=== PATIENT | male | born 1960 | race Caucasian/White ===

== ENCOUNTER 2020-01-18 14:01 | Emergency (ER) | payer OTHER, SELFPAY ==
--- NOTE | ~2020-01-18 | CT_ITS ---
EXAMINATION: CT heel RT wo con DATE: 01/18/2020 15:17 INDICATION: Right calcaneus fracture TECHNIQUE: Computed tomography (CT) of the right heel was performed without intravenous contrast. The dose-length product (DLP) was 242.19 mGy-cm. Automated exposure control and iterative reconstruction technique were employed. COMPARISON: None FINDINGS: There is a comminuted fracture of the calcaneus which involves the subtalar joint and exten ds to the anteromedial cortex of the calcaneus. Fracture fragments are by as much as 4 mm. No additional acute osseous findings are evident. There is soft tissue swelling of the heel. IMPRESSION: 1. Comminuted fracture of the calcaneus extending to the subtalar joint as well as the anteromedial c ortex of the calcaneus. Reviewed, dictated and finalized at location A. IMPRESSION: 1. Comminuted fracture of the calcaneus extending to the subtalar joint as well as the anteromedial cortex of the calcaneus.
--- NOTE | ~2020-01-18 | XR_ITS ---
EXAMINATION: XR ankle RT min 3V INDICATION: Right foot and ankle pain, initial encounter TECHNIQUE: Four views of the right ankle are obtained. COMPARISON: None available FINDINGS: There is an acute, traumatic, closed, comminuted fracture of the calcaneus. No additional a cute osseous findings are evident. Bone alignment is normal. There is soft tissue swelling of the pos terior foot. IMPRESSION: 1. Comminuted calcaneus fracture. Reviewed, dictated and finalized at location A.
[2020-01-18 14:07] VITALS: BP 132/73; PULSE 73; RESP 18; TEMP 36.3; O2SAT 99
--- NOTE | 2020-01-18 14:22 | ED.GENADULT ---
HPI - General Adult General Chief complaint: Extremity Injury, Lower Stated complaint: right ankle injury Time Seen by Provider: 01/18/20 14:12 Source: patient History of Present Illness HPI narrative: Patient is a 59 y/o male complaining of right ankle and heel pain after he jumped off a trailer 1 hour ago. He describes the pain as sharp and rates it as 9/10. There is no pain radiation. He took Aleve, which did not help. He denies any other injury. He did not fall or hit his head. He also complains of some numbness to right heel. Review of Systems Constitutional: Constitutional: Denies chills, Denies fever(s), Denies headache(s) and Denies weakness Eyes: Eyes: Denies blurry vision ENT: Denies headache(s) and Denies neck pain Cardiovascular: Cardiovascular: Denies chest pain and Denies dyspnea Respiratory: Respiratory: Denies cough and Denies dyspnea Gastrointestinal: Gastrointestinal: Denies abdominal pain, Denies diarrhea, Denies nausea and Denies vomiting Genitourinary: Genitourinary: Denies hematuria and Denies dysuria Musculoskeletal: Musculoskeletal: Reports as per HPI, Denies back pain, Reports arthralgias (right ankle pain) and Denies neck pain Neurologic: Denies headache(s) and Denies weakness Exam Const: General: no acute distress and well developed Orientation/consciousness: oriented to person, oriented to place, oriented to time and patient oriented x3 HENMT: Head: normocephalic Ears: external ears normal General nose exam: Normal external nose present Eyes: General: appearance normal, both eyes and all related structures Conjunctivae: conjunctivae normal Neck: Neck: normal visual inspection and full ROM Chest: Chest palpation & inspection: normal inspection of the chest and no tenderness Resp: Effort & Inspection: normal respiratory effort and able to speak in complete sentences Skin: General skin exam: normal color and turgor normal Extrem: General: normal to inspection, full ROM and no pedal edema Right lower extremity: ankle Details: tenderness; no swelling and foot Details: tenderness Location: of the calcaneus Course Consultations Consultation #1: Discussed with Dr. Serrano, who recommends CT and splint with plaster. Date: 01/18/20 Time: 14:49 Vital Signs Vital signs: Vital Signs Temperature 36.3 C L 01/18/20 14:07 Pulse Rate 73 01/18/20 14:07 Respiratory Rate 18 01/18/20 14:07 Blood Pressure 132/73 01/18/20 14:07 Pulse Oximetry 99 01/18/20 14:07 Temperature 36.3 C L 01/18/20 14:07 Pulse Rate 88 01/18/20 15:22 Respiratory Rate 17 01/18/20 15:22 Blood Pressure 142/88 H 01/18/20 15:22 Pulse Oximetry 98 01/18/20 15:22 Procedures Orthopedic Splinting/Casting Injury #1: Splinting/Casting Date: 01/18/20 Splinting/Casting Time: 15:45 Side: right Lower Extremity Injury Location: foot (right calcaneus) Lower Extremity Immobilizer: posterior splint and stirrup splint Splint: customized in ED (plaster splint) Pre-Procedure Neuro Vascular Exam: normal Post-Procedure Neuro Vascular Exam: normal Other Orthopedic Equipment: crutches Medical Decision Making Vital Signs Vital Signs: Vital Signs Temperature 36.3 C L 01/18/20 14:07 Pulse Rate 73 01/18/20 14:07 Respiratory Rate 18 01/18/20 14:07 Blood Pressure 132/73 01/18/20 14:07 Pulse Oximetry 99 01/18/20 14:07 Temperature 36.3 C L 01/18/20 14:07 Pulse Rate 88 01/18/20 15:22 Respiratory Rate 17 01/18/20 15:22 Blood Pressure 142/88 H 01/18/20 15:22 Pulse Oximetry 98 01/18/20 15:22 Discharge Plan Discharge Clinical Impression: Closed fracture of right calcaneus Qualifiers: Encounter type: initial encounter Calcaneus location: unspecified portion of calcaneus Fracture alignment: displaced Qualified Code(s): S92.001A - Unspecified fracture of right calcaneus, initial encounter for closed fracture Patient Disposition
[2020-01-18] MEDS: HYDROcodone/acetaminophen (*CRX) 5-325 MG TABLET 1 TAB PO (15:20)
[2020-01-18 15:22] VITALS: BP 142/88; PULSE 88; RESP 17; O2SAT 98
== END 2020-01-18 16:13 | disposition home or self-care (01) ==
PROVIDERS: Emergency Provider Emergency Medicine; PCP Internal Medicine
DX: S92.001A Unspecified fracture of right calcaneus, initial encounter for closed fracture (principal); W17.89XA Other fall from one level to another, initial encounter
CPT/HCPCS: 29515; 73610; 73700; 99284; A9270

== ENCOUNTER 2020-01-24 01:28 | Outpatient (CLI) | payer OTHER, SELFPAY ==
[2020-01-24 17:58] LABS: SARS-CoV-2 RNA PCR Negative
== END 2020-01-24 01:29 | disposition home or self-care (01) ==
LOC: ANHCOVIDDT 01:29
PROVIDERS: PCP Internal Medicine; Visit Provider Orthopaedic Surgery
DX: Z01.812 Encounter for preprocedural laboratory examination (principal); Z20.828 Contact with and (suspected) exposure to other viral communicable diseases
CPT/HCPCS: 87635; C9803; U0003

== ENCOUNTER 2020-01-26 02:44 | Day surgery (SDC) | payer OTHER, SELFPAY ==
[2020-01-23 14:26] VITALS: BMI 29.4
[2020-01-26] VITALS (7 sets, daily range): BP systolic 115–138; BP diastolic 64–88; PULSE 82–92; RESP 10–18; TEMP 36.3–36.5; O2SAT 96–98
--- NOTE | ~2020-01-26 | XR_ITS ---
. EXAMINATION: XR surgery orthopedic DATE: 01/26/2020 12:09 INDICATION: ORIF right calcaneal fracture TECHNIQUE: 3 fluoroscopic spot images of the right hindfoot were obtained in varying obliquities duri ng procedure performed by Dr. Diaz. Radiologist was not present for the imaging or procedure. The amount of fluoroscopy time used during this procedure was 0.6 minutes. COMPARISON: CT dated 01/18/2020 FINDINGS: Interval open reduction and internal fixation with a lateral plate and screws extending from the ante rior to the posterior calcaneus. Alignment appears near-anatomic with no significant fracture gap or incongruity appreciated along the articular surface of the posterior facet. Joint spaces appear neel l. Expected small amount of postoperative gas at the subtalar joint and in the posterior recess of th e ankle joint. Small Achilles and plantar calcaneal spurs. IMPRESSION: 1. Near-anatomic alignment post reduction and internal lateral plate and screw fixation of a comminut ed intra-articular fracture of the right calcaneus. See procedure note for further detail. Reviewed, dictated and finalized at location A. IMPRESSION: 1. Near-anatomic alignment post reduction and internal lateral plate and screw fixation of a comminuted intra-articular fracture of the right calcaneus. See p rocedure note for further detail.
--- NOTE | 2020-01-26 07:15 | WPDHPUPDATE1 ---
History and Physical Update Update Date/Time: 01/26/20 07:15 History and Physical has been reviewed, including an updated exam of the patient. There are NO changes in the patient's condition. Covid test negative. Risks, benefits, and alternatives have been discussed and questions answered. Patient agrees to proceed with procedure.
[2020-01-26] MEDS: LACTATED RINGERS 1,000 ML 30 ML IV CONT ×2 (08:16→12:36)
[2020-01-26] MEDS: KETOROLAC 15 MG/ML VIAL (*BKC) IV PUSH (08:16)
[2020-01-26] MEDS: ACETAMINOPHEN 500 MG TABLET 1000 MG PO (08:16)
--- NOTE | 2020-01-26 08:26 | WPDANESEPPF ---
Anes - Initial Pre Proc Eval Procedure: Operation Date: 01/26/20 09:30 Proposed Procedures p Open Reduction Internal Fixation Right Calcaneus - Bandar Diaz MD Date/Time: 01/26/20 08:26 Surgeon: Bandar Diaz MD Pre Op Diagnosis: fx right calcaneous Patient Data Age: 59 Gender: M Height: 5 ft 7 in Weight: 84.1 kg Last Vital Signs Temp 36.5 C 01/26/20 08:22 Pulse 91 01/26/20 08:22 Resp 16 01/26/20 08:22 BP 138/88 01/26/20 08:22 Pulse Ox 98 01/26/20 08:22 Allergies Allergy/AdvReac Type Severity Reaction Status Date / Time Penicillins Allergy Unknown Unknown Verified 01/26/20 07:31 Home Medications Medication Instructions Recorded Confirmed Type oxycodone-acetaminophen 7.5 mg-325 1 tablet PO Q6H PRN #30 tablet 01/19/20 01/26/20 Rx mg tablet ibuprofen 200 mg tablet 200 mg PO Q6H PRN 01/23/20 01/26/20 History Patient hx anesthesia problems: none Family hx anesthesia problems: none PMFSH Past Medical History Medical History (Updated 01/26/20 @ 08:27 by Juanjose Rosado MD) Hyperlipidemia Overweight Seasonal allergies Vision abnormalities Surgical History Surgical History (Updated 01/26/20 @ 08:27 by Juanjose Rosado MD) H/O hernia repair H/O sinus surgery Social History Social History Smoking status: Former smoker Tobacco type: cigarettes Smoking end date: 04/23/00 Additional smoking assessment comments: pt stated he quit 23 years ago Alcohol intake: current Alcohol use details: once a week Living arrangements: with family Gender identity (if verbalized by the patient): Male Sexual Orientation (if Verbalized by the Patient): Straight or Heterosexual Spiritual care concerns: No Anes - Eval Final PreProcedure Day of Procedure 01/26/20 08:26 Patient weight: overweight Heart: regular rate and rhythm Lungs: clear to auscultation Airway: Mallampati scale class II Neurological: alert and oriented Last oral intake: >/= 8 hours ASA classification: II Emergent: no Anesthetic plan: proceed Anesthesia type and monitoring: general ETT and standard monitoring Informed Consent: The patient's anesthetic plan and its attendant risks and benefits were discussed with the patient/family/POA. Questions were solicited and answers provided to the satisfaction of the patient/family/POA.
--- NOTE | 2020-01-26 09:26 | SUR.PREOP ---
Discussed delay with patient. Voices understanding.
--- NOTE | 2020-01-26 10:00 | WPDANESPNB ---
Anes - Peripheral Nerve Block Date/Time: 01/26/20 10:00 I have discussed with the patient/family/POA the placement of a peripheral nerve block for post-operative pain management, including associated risks, benefits, complications, and side effects. Alternative methods of post-operative analgesia were detailed. Questions were solicited and answers provided to the satisfaction of the patient/family/POA. Time-Out: A pre-procedural Time-Out was completed immediately before starting the procedure and confirmed: Patient Identification, Site, Procedure, Patient Position and the Availability of Requisite Equipment. Clinical Indications: Acute post-operative pain management requested by the operative surgeon. Nerve Block Insertion Note Anes-nerve block: posterior fossa sciatic right Patient position: supine Skin prep: chlorhexidine Needle: 22 gauge, stimulating, insulated echogenic needle. Needle length: 80 mm Technique: nerve stimulation lost at (mA) (0.3) Injectate: bupivacaine 0.5% with epi 5 mcg/ml (30) and dexamethasone (mg) (8) Observations: tolerated well Complications: none Procedure start time:: 954 Procedure end time:: 1001
[2020-01-26] MEDS: CLINDAMYCIN 900 MG/NS 50 ML 900 MG/50 ML PIGGYBACK 50 MG IVPB (10:16)
--- NOTE | 2020-01-26 12:28 | SUR.OPER ---
Ebl=20ml
--- NOTE | 2020-01-26 12:46 | P.OP_ITS ---
Procedure Note - Detailed Date of procedure: 01/26/20 Pre-op diagnosis: fx right calcaneous Post-op diagnosis: same Procedure performed: Open reduction internal fixation of right calcaneus fracture, intra-articular Description of procedure: Indications: Patient is a 59-year-old gentleman who fell and sustained a right calcaneal intra-articular fracture with comminution. CT scan shows displacement of the articular surface. Patient desires operative treatment. What was done: Patient identified in the preoperative holding. Informed consent given. Operative extremity marked. Patient received intravenous antibiotics. Patient brought to the operating room where underwent general anesthetic by anesthesia team. Positioned supine on operating room table. Time-out performed confirming the patient, site of the surgery and the plan. Right lower extremity prepped and draped usual sterile surgical fashion using a ChloraPrep skin solution. Foot and ankle exsanguinated and a thigh tourniquet inflated to 250 mmHg. Sinus tarsi approach was utilized. Fifteen blade knife used to make an oblique incision from the tip of the fibula to the base of the 4th metatarsal. Hemostasis controlled electrocautery. Fascia incised in line with skin incision. A large hematoma was evacuated from the sinus tarsi after penetrating the fascia. A large ankle effusion was also noted and was released through the capsule. The articular surface could then be visualized. Soft tissue was freed up from the lateral side of the calcaneus with the blunt elevator in the articular surface was then reduced by rotating the lateral fracture piece in a counter clockwise manner. Image intensification confirm reduction. A lateral plate was then positioned and provisionally pinned to the lateral calcaneus holding reduction and the placement of the plate. This was again verified with image intensification. Nonlocking screws were used to secure the plate to the bone. Locking screws were then utilized for the articular piece and the anterior-posterior portions of the plate. Final images confirmed reduction of fracture and placement of the hardware. There was loss of intramedullary bone visible from the sinus tarsi. This was packed with allograft bone cancellous chips. Wound was thoroughly irrigated With solution. Fascia repaired with 2 Vicryl interrupted suture. Subcutaneous tissue repaired with 3 Monocryl and position skin repaired with 4 nylon running suture. Sterile dressing applied. The patient was then woken from anesthesia, extubated and taken to the recovery room in stable condition. All sponge, needle, instrument counts were correct at the end of the case. Implants: Biomet calcaneal locking plate Anesthesia: GLMA Surgeon: Bandar Diaz MD Chemical Research Worker: 1st per diem physical therapist assistant Estimated blood loss (mL): 20 Tourniquet time (min): 65 Drains: No Packing: No Pathology: none sent Complications: None Condition: stable Disposition: PACU
== END 2020-01-26 14:24 | disposition home or self-care (01) ==
PROVIDERS: PCP Internal Medicine; Visit Provider Orthopaedic Surgery
PROC: (CPT 28415; principal; 2020-01-26 09:30)
DX: S92.061A Displaced intraarticular fracture of right calcaneus, initial encounter for closed fracture (principal); W19.XXXA Unspecified fall, initial encounter; G89.18 Other acute postprocedural pain; E78.5 Hyperlipidemia, unspecified; Z87.891 Personal history of nicotine dependence
CPT/HCPCS: 28415; 64445; A9270; C1713; J1100; J1885; J2250; J2270; J2405; J2704; J3010; J7120

== ENCOUNTER 2020-12-24 17:49 | Emergency (ER) | payer OTHER, SELFPAY ==
[2020-12-24 17:54] VITALS: BP 185/94; PULSE 78; RESP 15; TEMP 36.5; O2SAT 98
--- NOTE | 2020-12-24 18:23 | ED.WOUNDLAC ---
HPI - Wound/Laceration General Chief Complaint: Wound/Laceration <Law García MD - Last Filed: 12/24/20 18:31> Stated Complaint: laceration <Law García MD - Last Filed: 12/24/20 18:31> Time Seen by Provider: 12/24/20 18:22 <Law García MD - Last Filed: 12/24/20 18:31> Source: patient <Law García MD - Last Filed: 12/24/20 18:31> Mode of arrival: ambulatory <Law García MD - Last Filed: 12/24/20 18:31> Limitations: no limitations <Law García MD - Last Filed: 12/24/20 18:31> History of Present Illness HPI narrative: Patient is a 60-year-old male complaining of a laceration on his left forearm after accidentally cutting it on a sharp object while trying to reach for something prior to arrival. Patient denies any other pain or injuries. Patient states that he cannot recall last time he had a tetanus shot. <Law García MD - Last Filed: 12/24/20 18:31> Related Data Home Medications: Home Medications Medication Instructions Recorded Confirmed ibuprofen 200 mg tablet 200 mg PO Q6H PRN 01/23/2021 <Law García MD - Last Filed: 12/24/20 18:31> Allergies/Adverse Reactions: Allergies Allergy/AdvReac Type Severity Reaction Status Date / Time Penicillins Allergy Unknown Unknown Verified 12/24/20 17:56 <Law García MD - Last Filed: 12/24/20 18:31> Review of Systems Review of Systems: All systems reviewed & are unremarkable except as noted in HPI and below <Law García MD - Last Filed: 12/24/20 18:31> PMFSH Past Medical History Medical History: Medical History Hyperlipidemia Overweight Seasonal allergies Vision abnormalities <Law García MD - Last Filed: 12/24/20 18:31> Surgical History Surgical History: Surgical History H/O hernia repair H/O sinus surgery <Law García MD - Last Filed: 12/24/20 18:31> Social History Social History: Social History Tobacco type: cigarettes Smoking end date: 04/23/00 Additional smoking assessment comments: pt stated he quit 23 years ago Alcohol intake: current Alcohol use details: once a week Gender identity (if verbalized by the patient): Male Sexual Orientation (if Verbalized by the Patient): Straight or Heterosexual Spiritual care concerns: No <Law García MD - Last Filed: 12/24/20 18:31> Exam Const: General: no acute distress and alert <Law García MD - Last Filed: 12/24/20 18:31> Orientation/consciousness: patient oriented x3 <Law García MD - Last Filed: 12/24/20 18:31> HENMT: Head: normal to inspection <Law García MD - Last Filed: 12/24/20 18:31> Eyes: Conjunctivae: conjunctivae normal <Law García MD - Last Filed: 12/24/20 18:31> Neck: Neck: normal visual inspection <Law García MD - Last Filed: 12/24/20 18:31> Resp: Effort & Inspection: normal respiratory effort <Law García MD - Last Filed: 12/24/20 18:31> Extrem: General: no clubbing, cyanosis or edema <Law García MD - Last Filed: 12/24/20 18:31> Other: 6 cm laceration left forearm, neurovascular is intact <Law García MD - Last Filed: 12/24/20 18:31> Course Vital Signs Vital signs: Vital Signs Temperature 97.7 F 12/24/20 17:54 Pulse Rate 78 12/24/20 17:54 Respiratory Rate 15 12/24/20 17:54 Blood Pressure 185/94 H 12/24/20 17:54 Pulse Oximetry 98 12/24/20 17:54 Temperature 97.7 F 12/24/20 17:54 Pulse Rate 78 12/24/20 17:54 Respiratory Rate 15 12/24/20 17:54 Blood Pressure 185/94 H 12/24/20 17:54 Pulse Oximetry 98 12/24/20 17:54 <Law García MD - Last Filed: 12/24/20 18:31> Vital Signs Temperature 97.7 F 12/24/20 17:54 P
[2020-12-24] MEDS: TETANUS,DIPHTHERIA,AC PERTUSSIS ADULT (0.5 ML) BOOSTRIX IM (18:43)
[2020-12-24 19:14] VITALS: BP 178/89; PULSE 80; RESP 20; O2SAT 100
== END 2020-12-24 19:15 | disposition home or self-care (01) ==
PROVIDERS: Emergency Provider Emergency Medicine; PCP Internal Medicine
DX: S51.812A Laceration without foreign body of left forearm, initial encounter (principal); Z23 Encounter for immunization; E78.5 Hyperlipidemia, unspecified; E66.3 Overweight; Z68.32 Body mass index [BMI] 32.0-32.9, adult; Z87.891 Personal history of nicotine dependence; W26.9XXA Contact with unspecified sharp object(s), initial encounter
CPT/HCPCS: 12002; 90471; 90715; 99282

== ENCOUNTER 2022-01-06 07:07 | Outpatient (CLI) | payer OTHER, SELFPAY ==
[2022-01-06 09:21] LABS: Alanine Aminotransferase 64 U/L (6-50); Albumin Level 4.4 g/dL (3.5-5.1); Alkaline Phosphatase 91 U/L (38-126); Anion Gap 10 mmol/L (8-16); Aspartate Amino Transferase 39 U/L (17-59); Blood Urea Nitrogen 15 mg/dL (9-20); Calcium 9.5 mg/dL (8.4-10.2); Carbon Dioxide 25 mmol/L (22-30); Chloride 101 mmol/L (98-107); Cholesterol 135 mg/dL (0-200); Estimated Glomerular Filt Rate > 60; Glucose 234 mg/dL (65-110); HDL Direct 30 mg/dL; Potassium 4.1 mmol/L (3.4-5.0); Sodium 136 mmol/L (137-145); Triglycerides 185 mg/dL (<150)
[2022-01-06 09:26] LABS: Creatinine Urine 236.2 mg/dL
[2022-01-06 09:30] LABS: MALB Creatinine Ratio 12.6 mg/g (0-30); Microalbumin Urine Random 29.7 mg/L (0-16.7)
[2022-01-06 09:32] LABS: LDL Cholesterol Direct 76 mg/dL
[2022-01-06 14:05] LABS: Hemoglobin A1C 7.8 % (<5.7)
== END 2022-01-06 07:08 | disposition home or self-care (01) ==
LOC: ANHLAB 07:10
PROVIDERS: PCP Internal Medicine; Visit Provider Internal Medicine
DX: E11.9 Type 2 diabetes mellitus without complications (principal); E78.5 Hyperlipidemia, unspecified; Z12.5 Encounter for screening for malignant neoplasm of prostate
CPT/HCPCS: 36415; 80053; 80061; 82043; 83036; 84153; G0103

== ENCOUNTER 2022-05-19 08:14 | Outpatient (CLI) | payer OTHER, SELFPAY ==
--- NOTE | ~2022-05-19 | XR_ITS ---
EXAMINATION: XR ankle RT min 3V DATE: 05/19/2022 10:00 INDICATION: Pain, tingling and limited range of motion at the right ankle TECHNIQUE: Anteroposterior, oblique, mortise, and lateral views of the right ankle were obtained. COMPARISON: 01/19/2021 FINDINGS: Lateral plate and screw fixation along the right calcaneus for chronic fracture which is healed in ne ar-anatomic alignment. No acute fractures. No instrumentation failure or surrounding lucency to sugge st loosening or infection. Mild subtalar osteoarthritis. Small Achilles and plantar calcaneal spurs. Soft tissues are unremarkable. No right ankle joint effusion.. IMPRESSION: 1. Internal fixation of an old healed right calcaneal fracture which is in near-anatomic alignment. 2. Mild subtalar osteoarthritis. Reviewed, dictated and finalized at location B. NING TECHNOLOGIST IMPRESSION: 1. Internal fixation of an old healed right calcaneal fracture which is in near -anatomic alignment. 2. Mild subtalar osteoarthritis.
[2022-05-19 09:50] LABS: Anion Gap 7 mmol/L (8-16); Blood Urea Nitrogen 17 mg/dL (9-20); Calcium 9.3 mg/dL (8.4-10.2); Carbon Dioxide 27 mmol/L (22-30); Chloride 101 mmol/L (98-107); Estimated Glomerular Filt Rate > 60; Glucose 116 mg/dL (65-110); Potassium 4.3 mmol/L (3.4-5.0); Sodium 135 mmol/L (137-145)
== END 2022-05-19 08:15 | disposition home or self-care (01) ==
LOC: ANHLAB 08:20
PROVIDERS: PCP Internal Medicine; Visit Provider Internal Medicine
DX: M19.071 Primary osteoarthritis, right ankle and foot (principal); E11.9 Type 2 diabetes mellitus without complications
CPT/HCPCS: 36415; 73610; 80048; 83036

== ENCOUNTER 2023-03-13 09:14 | Outpatient (CLI) | payer OTHER, SELFPAY ==
[2023-03-13 09:49] LABS: Alanine Aminotransferase 34 U/L (6-50); Albumin Level 4.5 g/dL (3.5-5.1); Alkaline Phosphatase 62 U/L (38-126); Anion Gap 9 mmol/L (8-16); Aspartate Amino Transferase 26 U/L (17-59); Bilirubin,Total 1.1 mg/dL (0.2-1.3); Blood Urea Nitrogen 13 mg/dL (9-20); Calcium 9.5 mg/dL (8.4-10.2); Carbon Dioxide 26 mmol/L (22-30); Chloride 102 mmol/L (98-107); Cholesterol 112 mg/dL (0-200); Estimated Glomerular Filt Rate > 60; Glucose 129 mg/dL (65-110); HDL Direct 33 mg/dL; Potassium 3.9 mmol/L (3.4-5.0); Sodium 137 mmol/L (137-145); Triglycerides 80 mg/dL (<150)
[2023-03-13 10:01] LABS: LDL Cholesterol Direct 61 mg/dL
[2023-03-13 10:18] LABS: Prostate Specific Antigen 1.8 ng/mL (< OR = 4.0)
== END 2023-03-13 09:15 | disposition home or self-care (01) ==
LOC: ANHLAB 09:16
PROVIDERS: PCP Internal Medicine; Visit Provider Internal Medicine
DX: E11.9 Type 2 diabetes mellitus without complications (principal); E78.5 Hyperlipidemia, unspecified; Z12.5 Encounter for screening for malignant neoplasm of prostate
CPT/HCPCS: 36415; 80053; 80061; 83036; 84153; G0103

== ENCOUNTER 2023-09-14 09:57 | Outpatient (CLI) | payer OTHER, SELFPAY ==
[2023-09-14 10:31] LABS: Basophils Absolute Auto 0.1 K/mm3 (0.0-0.1); Basophils Percent Auto 1.4 % (0.2-1.2); Eosinophils Absolute Auto 0.2 K/mm3 (0-0.3); Eosinophils Percent Auto 3.6 % (0-4.4); Hematocrit 49.1 % (42.0-52.0); Hemoglobin 16.5 g/dL (14.0-18.0); Immature Granulocyte Absolute 0.03 K/mm3 (0.00-0.031); Immature Granulocyte Percent A 0.5 % (0-0.5); Lymphocytes Absolute Auto 1.83 K/mm3 (0.9-3.2); Mean Corpuscular HGB Conc 33.6 g/dl (32-36); Mean Corpuscular Volume 89.3 fl (80-100); Mean Platelet Volume 9.6 fl (7.4-10.4); Monocytes Absolute Auto 0.6 K/mm3 (0.1-0.6); Monocytes Percent Auto 9.7 % (2.6-8.5); Neutrophils Absolute Auto 3.5 K/mm3 (1.3-6.7); Neutrophils Percent Auto 55.8 % (45.5-73.1); Platelet Count Result 267 k/mm3 (150-375); Red Cell Distribution Width 12.1 % (11.5-14.5); White Blood Count 6.3 K/mm3 (4.5-10.0)
[2023-09-14 10:42] LABS: Alanine Aminotransferase 31 U/L (6-50); Albumin Level 4.9 g/dL (3.5-5.1); Alkaline Phosphatase 71 U/L (38-126); Anion Gap 8 mmol/L (4-12); Aspartate Amino Transferase 25 U/L (17-59); Bilirubin,Total 1.3 mg/dL (0.2-1.3); Blood Urea Nitrogen 13 mg/dL (9-20); Calcium 10.1 mg/dL (8.4-10.2); Carbon Dioxide 29 mmol/L (22-30); Chloride 102 mmol/L (98-107); Cholesterol 122 mg/dL (0-200); Estimated Glomerular Filt Rate > 60; Glucose 131 mg/dL (65-110); HDL Direct 36 mg/dL; Potassium 4.6 mmol/L (3.4-5.0); Sodium 139 mmol/L (137-145); Triglycerides 106 mg/dL (<150)
[2023-09-14 10:53] LABS: LDL Cholesterol Direct 71 mg/dL
[2023-09-14 11:03] LABS: Creatinine Urine 39.8 mg/dL
[2023-09-14 11:25] LABS: Microalbumin Urine Random < 6.0 mg/L (0-16.7)
[2023-09-14 18:47] LABS: Hemoglobin A1C 6.2 % (<5.7)
== END 2023-09-14 09:58 | disposition home or self-care (01) ==
LOC: ANHLAB 09:59
PROVIDERS: PCP Internal Medicine; Visit Provider Internal Medicine
DX: E78.5 Hyperlipidemia, unspecified (principal); E11.9 Type 2 diabetes mellitus without complications
CPT/HCPCS: 36415; 80053; 80061; 82043; 83036; 84443; 85025

== ENCOUNTER 2023-09-20 11:03 | Outpatient (CLI) | payer OTHER, SELFPAY ==
--- NOTE | ~2023-09-20 | CT_ITS ---
EXAMINATION: CT pelvis wo con DATE: 09/20/2023 11:21 INDICATION: Chronic right lower quadrant abdominal pain. TECHNIQUE: Computed tomography (CT) of the pelvis was performed without intravenous contrast. Automat ed exposure control and iterative reconstruction technique were employed. The dose-length product was 385.40 mGy-cm. COMPARISON: None FINDINGS: There are no dilated loops of bowel. The visualized portion of the appendix is normal. The prostate is mildly enlarged. There are changes of right inguinal hernia repair. There are no patholog ically enlarged lymph nodes. There is no free intraperitoneal fluid. There is mild osteoarthritis of the hips. IMPRESSION: 1. No etiology for the patient's symptoms. Reviewed, dictated and finalized at location A.
== END 2023-09-20 11:04 ==
LOC: MICIMG 11:04
PROVIDERS: PCP Internal Medicine; Visit Provider Surgery
DX: R10.31 Right lower quadrant pain (principal)
CPT/HCPCS: 72192

== ENCOUNTER 2023-12-07 08:29 | Outpatient (CLI) | payer OTHER, SELFPAY ==
[2023-12-07 09:20] LABS: Basophils Absolute Auto 0.1 K/mm3 (0.0-0.1); Basophils Percent Auto 1.4 % (0.2-1.2); Eosinophils Absolute Auto 0.2 K/mm3 (0-0.3); Hematocrit 46.4 % (42.0-52.0); Hemoglobin 15.7 g/dL (14.0-18.0); Immature Granulocyte Absolute 0.02 K/mm3 (0.00-0.031); Immature Granulocyte Percent A 0.3 % (0-0.5); Lymphocytes Absolute Auto 1.59 K/mm3 (0.9-3.2); Mean Corpuscular HGB Conc 33.8 g/dl (32-36); Mean Corpuscular Hemoglobin 30.4 pg (26-34); Mean Corpuscular Volume 89.9 fl (80-100); Mean Platelet Volume 9.6 fl (7.4-10.4); Monocytes Absolute Auto 0.7 K/mm3 (0.1-0.6); Neutrophils Absolute Auto 4.1 K/mm3 (1.3-6.7); Neutrophils Percent Auto 61.3 % (45.5-73.1); Platelet Count Result 244 k/mm3 (150-375); Red Blood Count 5.16 M/mm3 (4.6-6.20); Red Cell Distribution Width 12.3 % (11.5-14.5); White Blood Count 6.6 K/mm3 (4.5-10.0)
[2023-12-07 09:29] LABS: Alanine Aminotransferase 28 U/L (6-50); Albumin Level 4.6 g/dL (3.5-5.1); Alkaline Phosphatase 69 U/L (38-126); Anion Gap 12 mmol/L (4-12); Aspartate Amino Transferase 25 U/L (17-59); Bilirubin,Total 1.4 mg/dL (0.2-1.3); Blood Urea Nitrogen 14 mg/dL (9-20); Calcium 9.7 mg/dL (8.4-10.2); Carbon Dioxide 25 mmol/L (22-30); Chloride 99 mmol/L (98-107); Cholesterol 108 mg/dL (0-200); Estimated Glomerular Filt Rate > 60; Glucose 119 mg/dL (65-110); HDL Direct 35 mg/dL; Potassium 4.3 mmol/L (3.4-5.0); Sodium 136 mmol/L (137-145); Triglycerides 114 mg/dL (<150)
[2023-12-07 09:38] LABS: Hemoglobin A1C 6.1 % (<5.7)
[2023-12-07 09:40] LABS: LDL Cholesterol Direct 54 mg/dL
[2023-12-07 09:52] LABS: Creatinine Urine 49.7 mg/dL
[2023-12-07 12:35] LABS: Microalbumin Urine Random < 6.0 mg/L (0-16.7)
[2023-12-07 12:36] LABS: MALB Creatinine Ratio < 12.1 mg/g (0-30)
== END 2023-12-07 08:30 | disposition home or self-care (01) ==
LOC: ANHLAB 08:30
PROVIDERS: PCP Internal Medicine; Visit Provider Internal Medicine
DX: E11.9 Type 2 diabetes mellitus without complications (principal); E87.5 Hyperkalemia
CPT/HCPCS: 36415; 80053; 80061; 82043; 83036; 84443; 85025

== ENCOUNTER 2024-01-05 07:37 | Outpatient (CLI) | payer OTHER, SELFPAY ==
--- NOTE | ~2024-01-05 | US_ITS ---
EXAMINATION: US abdomen complete DATE: 01/05/2024 08:04 INDICATION: Hyperbilirubinemia TECHNIQUE: Multiple grayscale and Doppler ultrasound images of the abdomen were obtained. COMPARISON: None FINDINGS: Visualized proximal to mid abdominal aorta and inferior vena cava are normal. The pancreatic head and body are normal in appearance. The pancreatic tail is not visualized. Liver has normal echogenicity and contour, with a smooth surface. No liver lesion identified. No intrahepatic biliary duct dilatio n suspected. Portal venous flow was seen in the hepatopetal, normal direction and has normal Doppler waveform. The gallbladder is normal in appearance. There is no cholelithiasis. The common bile duct measures 3 mm, which is normal. Sonographic Henderson sign was reported as negative by the life sciences instructor. There is normal renal contour and echogenicity bilaterally. The right kidney measures 11.2 x 4.5 x 5. 7 cm and the left 11.5 x 4.7 x 4.1 cm. There are no focal renal lesions identified. There is no hyd ronephrosis. Spleen is normal measuring 10.0 cm maximal length. IMPRESSION: 1. Normal abdominal ultrasound. Reviewed, dictated and finalized at location A.
== END 2024-01-05 07:38 | disposition home or self-care (01) ==
LOC: MICIMG 07:38
PROVIDERS: PCP Internal Medicine; Visit Provider Internal Medicine
DX: E80.6 Other disorders of bilirubin metabolism (principal)
CPT/HCPCS: 76700

== ENCOUNTER → 2024-01-23 09:08 | Outpatient (REF) | payer OTHER, SELFPAY | LOC: ANHLAB 09:08 | PROVIDERS: PCP Internal Medicine; Visit Provider Plastic Surgery | DX: L72.3 Sebaceous cyst (principal) | CPT/HCPCS: 88305 ==

== ENCOUNTER 2024-02-29 00:15 | Day surgery (SDC) | payer OTHER, SELFPAY ==
[2024-02-20 08:28] VITALS: BMI 28.0
[2024-02-29 06:05] VITALS: BP 152/83; PULSE 75; RESP 16; TEMP 36.2; O2SAT 99
[2024-02-29] MEDS: LACTATED RINGERS 1,000 ML 150 ML IV CONT (06:14)
[2024-02-29 06:23] LABS: Glucose Point of Care 159 mg/dl (65-105)
--- NOTE | 2024-02-29 07:05 | WPDANESEPPF ---
Anes - Initial Pre Proc Eval Procedure: Operation Date: 02/29/24 07:30 Proposed Procedures p Screening Colonoscopy - Moses Vuong MD Date/Time: 02/29/24 07:05 Surgeon: Moses Vuong MD Pre Op Diagnosis: Neoplasm screening Patient Data Age: 63 Gender: M Height: 1.68 m Weight: 78.3 kg Last Vital Signs Temp 36.2 C L 02/29/24 06:05 Pulse 75 02/29/24 06:05 Resp 16 02/29/24 06:05 BP 152/83 H 02/29/24 06:05 Pulse Ox 99 02/29/24 06:05 O2 Del Method Room Air 02/29/24 06:05 Allergies Allergy/AdvReac Type Severity Reaction Status Date / Time Penicillins Allergy Unknown Unknown Verified 02/29/24 06:04 Home Medications Medication Instructions Recorded Confirmed Type ezetimibe 10 mg tablet (Zetia) 10 mg PO DAILY 09/14/23 02/29/24 History losartan 50 mg tablet (Cozaar) 50 mg PO DAILY 09/14/23 02/29/24 History metformin 500 mg tablet 500 mg PO DAILY 09/14/23 02/29/24 History montelukast 10 mg tablet 10 mg PO DAILY 09/14/23 02/29/24 History (Singulair) Laboratory Tests 02/29/24 06:19 POC Capillary Glucose 159 H mg/dl (65-105) Patient hx anesthesia problems: none Family hx anesthesia problems: none Results Review: All pre-operative results and documents have been reviewed as part of the pre-operative evaluation. [facility] Past Medical History Medical History Hyperlipidemia Overweight Seasonal allergies Vision abnormalities Surgical History Surgical History H/O hernia repair H/O sinus surgery History of foot surgery Social History Social History Smoking packs per day: 1 Smoking cigarettes per day: 20.0 Years smoked: 5 Smoking pack-years: 5.00 Smoking status: Former smoker Tobacco type: cigarettes Smoking end date: 04/23/00 Additional smoking assessment comments: pt stated he quit 23 years ago Alcohol intake: current Drinks per week: 2 Alcohol use details: once a week Substance use: never Substance use type: does not use Do You Feel Safe in your Home?: Yes Lack of Transportation: No Lack of Food: Never True Current Housing: I Have Housing Living arrangements: with family Gender identity (if verbalized by the patient): Male Sexual Orientation (if Verbalized by the Patient): Straight or Heterosexual Spiritual care concerns: No Anes - Eval Final PreProcedure Day of Procedure 02/29/24 07:05 Patient weight: overweight Heart: regular rate and rhythm Lungs: clear to auscultation Airway: Mallampati scale class II Neurological: alert and oriented Last oral intake: >/= 8 hours ASA classification: II Emergent: no Anesthetic plan: proceed Anesthesia type and monitoring: general GIVS and standard monitoring Results Review: All pre-operative results and documents have been reviewed as part of the pre-operative evaluation. Informed Consent: The patient's anesthetic plan and its attendant risks and benefits were discussed with the patient/family/POA. Questions were solicited and answers provided to the satisfaction of the patient/family/POA.
--- NOTE | 2024-02-29 07:15 | PM.HPGS ---
History of Present Illness History of Present Illness Consent: Risks, benefits, and alternatives have been discussed and questions answered. Patient agrees to proceed with procedure. Chief complaint: Neoplasm screening Narrative: Waqar Cartwright is a 63 year old male here for screening colonoscopy, last one 12 years ago Review of Systems Review of Systems: All systems reviewed & are unremarkable except as noted in HPI and below PMFSH Past Medical History Medical History (Updated 02/29/24 @ 07:15 by Moses Vuong MD) Colon cancer screening Hyperlipidemia Overweight Seasonal allergies Vision abnormalities Surgical History Surgical History H/O hernia repair H/O sinus surgery History of foot surgery Social History Social History Smoking packs per day: 1 Smoking cigarettes per day: 20.0 Years smoked: 5 Smoking pack-years: 5.00 Smoking status: Former smoker Tobacco type: cigarettes Smoking end date: 04/23/00 Additional smoking assessment comments: pt stated he quit 23 years ago Alcohol intake: current Drinks per week: 2 Alcohol use details: once a week Substance use: never Substance use type: does not use Do You Feel Safe in your Home?: Yes Lack of Transportation: No Lack of Food: Never True Current Housing: I Have Housing Living arrangements: with family Gender identity (if verbalized by the patient): Male Sexual Orientation (if Verbalized by the Patient): Straight or Heterosexual Spiritual care concerns: No Meds Home Medications and Allergies Home Medications Medication Instructions Recorded Confirmed Type ezetimibe 10 mg tablet (Zetia) 10 mg PO DAILY 09/14/23 02/29/24 History losartan 50 mg tablet (Cozaar) 50 mg PO DAILY 09/14/23 02/29/24 History metformin 500 mg tablet 500 mg PO DAILY 09/14/23 02/29/24 History montelukast 10 mg tablet 10 mg PO DAILY 09/14/23 02/29/24 History (Singulair) Allergies Allergy/AdvReac Type Severity Reaction Status Date / Time Penicillins Allergy Unknown Unknown Verified 02/29/24 06:04 Vital Signs Vital Signs - 24 hr 02/29/24 06:05 Temperature 97.1 F L Pulse Rate 75 Respiratory Rate 16 Blood Pressure 152/83 H Pulse Oximetry 99 Oxygen Delivery Room Air Exam Const: General: comfortable and no acute distress HENMT: Face/Nose/Sinus: Normal nares present Eyes: General: appearance normal, both eyes and all related structures Neck: Neck: no JVD Resp: Auscultation: clear to auscultation bilaterally Cardio: Rate: regular rate Rhythm: regular rhythm GI: Inspection: non-distended GI Palp: Yes Soft to palpation Skin: General skin exam: normal color Neuro: General: gait normal Speech: normal speech Extrem: General: normal to inspection Psych: Mental Status: mental status grossly normal Assessment and Plan Assessment and plan (1) Colon cancer screening: Code(s): Z12.11 - Encounter for screening for malignant neoplasm of colon Status: Acute Assessment and Plan: colonoscopy
[2024-02-29 07:43] VITALS: BP 108/67; PULSE 70; RESP 18; O2SAT 98
[2024-02-29 07:53] VITALS: BP 119/67; PULSE 68; RESP 28; O2SAT 99
[2024-02-29 08:03] VITALS: BP 124/71; PULSE 65; RESP 21; O2SAT 100
== END 2024-02-29 08:13 | disposition home or self-care (01) ==
PROVIDERS: PCP Internal Medicine; Visit Provider Internal Medicine Gastroenterology
PROC: 0DJD8ZZ Inspection of Lower Intestinal Tract, Via Natural or Artificial Opening Endoscopic (ICD-10-PCS; CPT 45378; principal; 2024-02-29 07:30)
DX: Z12.11 Encounter for screening for malignant neoplasm of colon (principal); K64.8 Other hemorrhoids; E78.5 Hyperlipidemia, unspecified; Z79.84 Long term (current) use of oral hypoglycemic drugs; Z87.891 Personal history of nicotine dependence
CPT/HCPCS: 45378; 82948; J2704; J7120

== ENCOUNTER 2024-04-19 08:55 | Outpatient (CLI) | payer OTHER, SELFPAY ==
[2024-04-19 09:53] LABS: Basophils Absolute Auto 0.1 K/mm3 (0.0-0.1); Basophils Percent Auto 1.6 % (0.2-1.2); Eosinophils Absolute Auto 0.3 K/mm3 (0-0.3); Eosinophils Percent Auto 4.6 % (0-4.4); Hematocrit 45.7 % (42.0-52.0); Immature Granulocyte Absolute 0.04 K/mm3 (0.00-0.031); Immature Granulocyte Percent A 0.5 % (0-0.5); Lymphocytes Absolute Auto 2.15 K/mm3 (0.9-3.2); Lymphocytes Percent Auto 29.3 % (18.3-44.2); Mean Corpuscular HGB Conc 32.8 g/dl (32-36); Mean Corpuscular Hemoglobin 29.2 pg (26-34); Mean Corpuscular Volume 88.9 fl (80-100); Mean Platelet Volume 9.7 fl (7.4-10.4); Monocytes Absolute Auto 0.7 K/mm3 (0.1-0.6); Monocytes Percent Auto 9.3 % (2.6-8.5); Neutrophils Percent Auto 54.7 % (45.5-73.1); Platelet Count Result 293 k/mm3 (150-375); Red Blood Count 5.14 M/mm3 (4.6-6.20); Red Cell Distribution Width 12.3 % (11.5-14.5); White Blood Count 7.3 K/mm3 (4.5-10.0)
[2024-04-19 10:02] LABS: Alanine Aminotransferase 33 U/L (6-50); Albumin Level 4.3 g/dL (3.5-5.1); Alkaline Phosphatase 66 U/L (38-126); Anion Gap 3 mmol/L (4-12); Aspartate Amino Transferase 25 U/L (17-59); Bilirubin,Total 0.7 mg/dL (0.2-1.3); Blood Urea Nitrogen 12 mg/dL (9-20); Calcium 9.4 mg/dL (8.4-10.2); Carbon Dioxide 28 mmol/L (22-30); Chloride 105 mmol/L (98-107); Cholesterol 148 mg/dL (0-200); Estimated Glomerular Filt Rate > 60; Glucose 128 mg/dL (65-110); HDL Direct 40 mg/dL; Potassium 4.2 mmol/L (3.4-5.0); Sodium 136 mmol/L (137-145); Triglycerides 162 mg/dL (<150)
[2024-04-19 10:13] LABS: LDL Cholesterol Direct 73 mg/dL
[2024-04-19 10:26] LABS: Creatinine Urine 128.3 mg/dL
[2024-04-19 10:31] LABS: Prostate Specific Antigen 2.9 ng/mL (< OR = 4.0)
[2024-04-19 10:52] LABS: Hemoglobin A1C 6.5 % (<5.7)
[2024-04-19 10:54] LABS: MALB Creatinine Ratio < 4.7 mg/g (0-30); Microalbumin Urine Random < 6.0 mg/L (0-16.7)
[2024-04-19 11:05] LABS: Free T4 Free Thyroxine 0.92 ng/dL (0.78-2.19)
== END 2024-04-19 08:56 | disposition home or self-care (01) ==
PROVIDERS: PCP Internal Medicine; Visit Provider Internal Medicine
DX: E78.5 Hyperlipidemia, unspecified (principal); E11.9 Type 2 diabetes mellitus without complications; I10 Essential (primary) hypertension; Z12.11 Encounter for screening for malignant neoplasm of colon; Z13.29 Encounter for screening for other suspected endocrine disorder
CPT/HCPCS: 36415; 80053; 80061; 82043; 83036; 84153; 84439; 84443; 85025

== ENCOUNTER 2024-09-05 07:55 | Outpatient (CLI) | payer OTHER, SELFPAY ==
--- OUTSIDE RECORDS SUMMARY | 2024-09-05 07:59 | XMS_ITS | Data Portability ---
Author Organization [place] - [facility] [employer], Main Office Address [address] [place] [address] Care Team Providers Care Cable Tower Operator Name Role Phone FAVIO MARTINEZTATIANA Primary Care Provider [phone] DESTINEE MARTINEZ Referring Provider GUANAKITO ASHLEY Associate Professor Of Communication [phone] LOREE DANGELO General Surgeon RAINER GEE Featheredger And Reducer Machine RAÚL HENRY Plastic/Reconstructive Surgeo n Assessment Encounter Date Assessment Date Assessment LastModified by Organization Details LastModified Time 10/04/2023 10/04/2023 This note is dictated and transcribed by [employer]. Skills Auditor variances may occur. Despite proofreading, typographical errors may occur. Occasional wrong-word or 'uzajd-r-xuge' substitutions may have occurred due to the inherent limitations of voice recording. Read the chart carefully and recognize, using context, where substitutions have occurred. Not available 10/04/2023 16:47:51 12/26/2023 12/26/2023 03/13/2023: Gluc 129 A1C 6.0 PSA 1.8 12/07/2023: A1C 6.1 Gluc 119, T bili 1.4H 40 minutes spent with the patient Not available 12/26/2023 16:43:38 01/15/2024 01/15/2024 This note is dictated and transcribed by [employer]. Skills Auditor variances may occur. Despite proofreading, typographical errors may occur. Occasional wrong-word or 'gjduw-p-gkad' substitutions may have occurred due to the inherent limitations of voice recording. Read the chart carefully and recognize, using context, where substitutions have occurred. Not available 01/16/2024 09:26:48 05/14/2024 05/14/2024 03/13/2023: Gluc 129 A1C 6.0 PSA 1.8 12/07/2023: A1C 6.1 Gluc 119, T bili 1.4H 04/19/2024; Gluc 128 A1C 6.5 PSA 2.9 Not available 05/14/2024 17:03:25 08/12/2024 08/12/2024 This note is dictated and transcribed by [employer]. Skills Auditor variances may occur. Despite proofreading, typographical errors may occur. Occasional wrong-word or 'eduhu-u-kqtr' substitutions may have occurred due to the inherent limitations of voice recording. Read the chart carefully and recognize, using context, where substitutions have occurred. Not available 08/12/2024 16:35:00 Plan of Treatment Reminders Order Date Submit Date Provider Last Modified By Organization Details Last Modified Time Details Appointments Follow Up 15 2024 04:15P Jam cha MD Not available Not available Not available Lab hepatitis panel (A+B+C), acute, serum 2024 025 [facility] (Lab), [address] [place] [address], [address], 05/14/2024 18:10:39 glycohemo globin, total, blood 2024 025 [facility] (Lab), [address] [place] [address], [address], 05/14/2024 18:10:39 microalbu min, urine 2024 025 [facility] (Lab), [address] [place] [address], [address], 05/14/2024 18:10:39 lipid panel, serum 2024 025 [facility] (Lab), [address] [place] [address], [address], 05/14/2024 18:10:39 TSH, serum or plasma 2024 025 [facility] (Lab), [facility] [address], [place], [address], 05/14/2024 18:10:39 CBC w/ auto diff 2024 025 [facility] (Lab), [facility] [address], [place], [address], 05/14/2024 18:10:39 CMP, serum or plasma 2024 025 [facility] (Lab), [facility] [address], [place], [address], 05/14/2024 18:10:39 PSA, total, serum or plasma [address] (Lab), [address] [place], [address], 07/28/2024 12:02:33 hepatitis panel (A+B+C), acute, serum [address] (Lab), [address] [place], [address], 07/28/2024 12:02:33 glycohemo globin, total, blood [address] (Lab), [address] [place], [address], 06/23/2024 09:18:05 microalbu min, urine [address] (Lab), [address] [place], [address], 06/23/2024 09:18:05 lipid panel, serum [address] (Lab), [address] [place], [address], 06/23/2024 09:18:05 TSH, serum or plasma [address] (Lab), [address] [place], [address], 06/23/2024 09:18:05 CBC w/ auto diff [address] (Lab), [address] [place], [address], 06/23/2024 09:18:06 CMP, serum or plasma [address] (Lab), [address] [place], [address], 06/23/2024 09:18:06 Referral cardiolog ist referral - Please call patient to schedule. 2024 025 [place], [address] [facility] [address], [address], 05/26/2024 17:15:39 podiatris t referral 2024 025 [email or web address] Rainer Gee DPM, [address] [facility], [facility] [[email or web address] [address], [address], 05/15/2024 10:40:43 podiatris t referral 2023 024 [email or web address] Rainer Gee DPM, [address] [facility], [facility] [[email or web address]] [address], [address], 01/23/2024 08:46:34 Procedures colonosco py screening (PROC) 2024 025 [email or web address] Moi Cruz MD, [address] [facility] [address], [place], [address], 05/15/2024 10:39:44 colonosco py screening (PROC) 2023 024 [email or web address] Nicko Olvera MD, [address] [facility], [address], [place], [address], 05/15/2024 10:38:13 Surgeries None recorded. Imaging US, liver - Please call patient to schedule. [address], [address], [place], [address], 07/08/2024 12:56:02 US, abdomen - [id number] 2023 024 [facility], [address], [place], [address], 01/05/2024 09:24:38 Medication Orders None recorded. Patient TargetsNo targets recorded. Patient Instructions Encounter Date Encounter Id Patient Instructions Last Modified By Organization Details Last Modified Time 10/04/2023 [id number] diabetic foot care education Not available 10/04/2023 16:51:30 diabetic neuropathy education Not available 10/04/2023 16:51:30 12/26/2023 [id number] diabetic eye exam* [email or web address] Not available 06/23/2024 08:33:50 Reason for Referral Featheredger And Reducer Machine Referral for Type 2 diabetes mellitus without complication Referring Physician: Destinee Martinez Internal [facility], Encounter Date: 12/26/2023 Featheredger And Reducer Machine Referral for Type 2 diabetes mellitus without complication Referring Physician: Destinee Martinez Internal [facility], Encounter Date: 05/14/2024 Clinical Dietician Referral for Sc reening for cardiovascular system disease Please call patient to schedule. Referring Physician: Destinee Martinez [facility], Encounter Date: 05/14/2024 Results Created Date Observation Date Name Description Value Unit Range Abnormal Flag Note LastModifiedBy Organization Detail LastModifiedTime 09/20/19 24 09/20/2023 imagi ng/di agnos tic resul t No observ ation record ed. [facility] [address], [place], [address], 09/20/2023 16:27:41 01/05/20 24 01/05/2024 US, abdom en No observ ation record ed. [facility] [address], [place], [address], 01/05/2024 09:24:38 Result Notes None recorded. Problems Name Problem SNOMED Code Status Onset Date Resolution Date Notes Provider Name and Address Organization Details Recorded Time Pain of right ankle joint 18880040728 534968 Active 2022 Not Available [facility] 3 14:13:56 Liver function tests outside reference range 805375754 Active 2021 Not Available [facility] 3 14:13:56 Insomnia 514237473 Active 2017 Not Available [facility] 3 14:13:57 Low back pain 003279868 Active 2017 Not Available [facility] 3 14:13:57 Hypertrig lyceridem ia 328047508 Active 2020 Not Available [facility] 3 14:13:57 Type 2 diabetes mellitus without complicat ion 601667390 Completed 202105/09/2022 Destinee polo MD [address] [facility], [facility] [[email or web address]] [address], [place], [address] , [facility] [email or web address] [facility] 4 09:25:56 Hyperlipi demia 11293842 Active Not Available [facility] 3 14:13:57 Essential hypertens ion 73195185 Active 2021 Not Available [facility] 3 14:13:57 Allergic rhinitis 86534168 Active 2020 Not Available [facility] 3 14:13:57 Diabetes mellitus 79398985 Active 2020 Not Available [facility] 3 14:13:57 Hyperglyc emia 77141149 Completed Not Available [facility] 3 14:13:57 COVID-19 344741328 Completed 202112/28/2021 Not Available [facility] 3 14:13:57 Erectile dysfuncti on 666971449 Active 2020 Not Available [facility] 3 14:13:57 Skin lesion 06881578 Active 2017 Not Available [facility] 3 14:13:57 Basal cell carcinoma of skin 859980657 Active 2022 FRANCIE Diaz null, [employer] 4 10:55:09 Type 2 diabetes mellitus without complicat ion 385449496 Active 2023 Destinee polo MD [address], [address], [place], [address] , [employer] [facility] [employer] 4 09:25:56 Right inguinal hernia 512993315 Active 2023 Destinee polo MD [address], [address], [place], [address] , [employer] [facility] [employer] 4 11:26:42 Inguinal hernia 050952110 Active 2023 Raquel Olson MA null, [employer] [facility] [employer] 4 15:25:23 Pain in right foot 73568811699 9107 Active 2023 Rainer Gee DPM [address], [address], [place], [address] , [employer] [facility] 4 16:47:43 Localized , primary osteoarth ritis of the ankle and/or foot 729436087 Active 2023 Rainer Gee DPM [address], [address], [place], [address] , [employer] [facility] 4 16:47:48 Localized , primary osteoarth ritis of the ankle and/or foot 470833441 Active 2023 Rainer Gee DPM [address], [address], [place], [address] , [facility] [employer] [facility] [employer] [facility] 4 16:49:26 Localized , 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 425442175 Active 2023 Rainer Gee DPM [address], [address], [place], [address] , [facility] [employer] [facility] [employer] [facility] 4 16:50:36 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 Procedures Surgical History Date Name Laterality Status Provider Name and Address Organization Details Recorded Time 5 Joint Injection-Podia try completed Rainer Gee DPM [address], [address], [place], [address], [facility] [employer] [facility] [employer] [facility] 08/12/2024 16:34:52 4 Colonoscopy completed Tory Young Alexis [employer] [facility] [employer] [facility] 05/14/2024 16:52:09 4 excision of cyst completed Tory Young Alexis [facility] [employer] [facility] 05/14/2024 16:54:18 4 Joint Injection-Podia try completed Rainer Gee DPM [address], [place], [address], [facility] [employer] [facility] [employer] [facility] 01/15/2024 17:18:24 4 Joint Injection-Podia try completed Rainer Gee DPM [address], [place], [address], [facility] [employer] [facility] [employer] [facility] 10/04/2023 16:53:52 Hernia Repair completed MARGIE Neal Darcy [facility] 08/29/2023 10:56:30 Sinus Surgery completed MARGIE Neal Darcy [facility] 08/29/2023 10:56:41 Foot Surgery completed MARGIE Neal Darcy [facility] 08/29/2023 10:56:55 Imaging Results Imaging Date Name Status LastModified by Organiz ation Details LastModified Time 09/20/2023 imaging/diagn ostic result active [facility] [address], [place], [address], 09/20/2023 16:27:41 01/05/2024 US, abdomen active [facility] Prudence ging [address], [place], [address], 01/05/2024 09:24:38 Procedure Notes None recorded. Medical Equipment None Reported. Allergies Allergen ID Allergen Name Allergen Category Reaction Reaction Severity Criticality Documentation Date Start Date Code Code System Note Provider Name and Address Organization Details Recorded Time 79205 Product containin g penicilli n (product) medicatio n Not available Not available Not available 06/21/2022 27721 8001 SNOMED Not Available [facility] 14:16:44 Medications Name Sig Start Date Stop Date Status Note LastModified by Organization Details LastModified Time losartan 50 mg tablet TAKE 1 TABLET DAILY active Not Available Not Available No t Available cyclobenzap rine 10 mg tablet Take 1 tablet every day by oral route at bedtime. 06/28 completed Not Available Not Available Not Available atorvastati n 40 mg tablet TAKE 1 TABLET DAILY active Not Available Not Available No t Available prednisone 10 mg tablet 30mg x 3 days, 20mg x3 days, 10mg x 3 days active Not Available Not Available No t Available doxycycline hyclate 100 mg capsule Take 1 capsule twice a day by oral route for 7 days. active Not Available Not Available No t Available trazodone 50 mg tablet Take 1 tablet every day by oral route as needed. 09/15 completed Not Available Not Available Not Available sildenafil 50 mg tablet TAKE 1 TABLET BY MOUTH TWICE A WEEK 2024 active Not Available Not Available Not Avai lable azithromyci n 250 mg tablet TAKE 2 TABLETS (500 MG) BY ORAL ROUTE ONCE DAILY FOR 1 DAY THEN 1 TABLET (250 MG) BY ORAL ROUTE ONCE DAILY FOR 4 DAYS 08/26 completed Not Available Not Available Not Available hydrocodone 5 mg-acetamin ophen 325 mg tablet active Not Available Not Available No t Available triamcinolo ne acetonide 0.1 % topical cream APPLY A THIN LAYER TO THE AFFECTED AREA(S) BY TOPICAL ROUTE 2 TIMES PER DAY active Not Available Not Available No t Available alprazolam 0.25 mg tablet Take 1 tablet by oral route at bedtime. 10/16 completed Not Available Not Available Not Available etodolac 400 mg tablet Take 1 tablet twice a day by oral route. 08/28 completed Not Available Not Available Not Available montelukast 10 mg tablet TAKE 1 TABLET DAILY active Not Available Not Available No t Available azelastine 137 mcg (0.1 %) nasal spray Chavies 2 sprays twice a day by intranasa l route. 10/03 completed Not Available Not Available Not Available oxycodone-a cetaminophe n 7.5 mg-325 mg tablet TK 1 T PO Q 6 H PRF PAIN active Not Available Not Available No t Available fluticasone propionate 50 mcg/actuati on nasal spray,suspe nsion Chavies 2 sprays every day by intranasa l route for 30 days. 10/21 completed Not Available Not Available Not Available metformin ER 500 mg tablet,exte nded release 24 hr TAKE 1 TABLET TWICE A DAY active Not Available Not Available No t Available ezetimibe 10 mg tablet TAKE 1 TABLET DAILY active Not Available Not Available No t Available tadalafil 20 mg tablet TAKE 1 TABLET TWICE A WEEK NEEDED, ONE-HALF HOUR PRIOR TO SEX, ER IF ERECTION LASTS MORE THAN 2 HOURS 05/14 completed Not Available Not Available Not Available Singulair 12/25 completed Not Available Not Available Not Available Cozaar 12/25 completed Not Available Not Available Not Available ProAir HFA 90 mcg/actuati on aerosol inhaler Inhale 2 puffs 4 times a day by inhalatio n route. 07/13 completed Not Available Not Available Not Available OneTouch Verio test strips USE 1 STRIP TWICE A DAY active Not Available Not Available No t Available [employer] Verio Flex Meter 10/03 completed Not Available Not Available Not Available [employer] Delica Plus Lancet 33 gauge USE TO TEST BLOOD SUGAR TWICE A DAY 10/03 completed Not Available Not Available Not Available [employer] COVID-19 Antigen Home Test kit 05/12 completed Not Available Not Available Not Available Paxlovid 300 mg (150 mg x 2)-100 mg tablets in a dose pack UUD on package X 5 days active Not Available Not Available No t Available Vitals Date Recorded Body height Body mass index (BMI) Body weight Heart rate Respiratory rate Body temperature Oxygen saturation Oxygen saturation in Arterial blood by Pulse oximetry Systolic blood pressure Diastolic blood pressure Provider Name and Address Organization Details Last Updated DateTime 4 167.64 cm 29.9 kg/m2 28007.5 9 g 81 /min 16 /min 98 [degF] 97 % 97 % 120 mm[Hg] 70 mm[Hg] Paige Rivera [facility] [employer] 4 16:12:35 Date Recorded Body height Body mass index (BMI) Body weight Body temperature Heart rate Oxygen saturation Oxygen saturation in Arterial blood by Pulse oximetry Pain severity - 0-10 verbal numeric rating [Score] - Reported Systolic blood pressure Diastolic blood pressure Provider Name and Address Organization Details Last Updated DateTime 4 167.64 cm 28.2 kg/m2 66253.6 6 g 98 [degF] 86 /min 95 % 95 % 4 124 mm[Hg] 64 mm[Hg] Moriah Langley MA [facility] [employer] [facility] 4 16:22:51 Date Recorded Body height Body mass index (BMI) Body weight Heart rate Respiratory rate Oxygen saturation Oxygen saturation in Arterial blood by Pulse oximetry Provider Name and Address Organization Details Last Updated DateTime 4 167.64 cm 28.2 kg/m2 11596.6 6 g 89 /min 14 /min 98 % 98 % Bailey Hahn [facility] [employer] [facility] 4 16:33:38 Date Recorded Body height Body mass index (BMI) Body weight Body temperature Heart rate Systolic blood pressure Diastolic blood pressure Provider Name and Address Organization Details Last Updated DateTime 167.64 cm 28.6 kg/m2 96560.8 5 g 97.8 [degF] 78 /min 130 mm[Hg] 74 mm[Hg] Tory Young Alexis [facility] [employer] [facility] 16:56:34 Date Recorded Body height Body mass index (BMI) Body weight Heart rate Respiratory rate Oxygen saturation Oxygen saturation in Arterial blood by Pulse oximetry Systolic blood pressure Diastolic blood pressure Provider Name and Address Organization Details Last Updated DateTime 167.64 cm 28.6 kg/m2 06886.8 5 g 74 /min 14 /min 99 % 99 % 131 mm[Hg] 74 mm[Hg] Bailey Hahn [facility] [employer] [facility] 16:09:43 Social History Question Answer Notes LastModified by Organizat ion Details LastModified Time Tobacco Smoking Status Former Smoker Paige Youngisaac gomez [facility] [email or web address] [facility] 10/04/2023 16:13:17 Do You Have An Advance Directive? No [id number] Information not available 06/21/2022 Are You Blind Or Do You Have Difficulty Seeing? No MIGRATION.95757 14424 Information not available 06/21/2022 What Is Your Level Of Caffeine Consumption? Moderate MIGRATION.02480 55110 Information not available 06/21/2022 In The 14 Days Before Symptom Onset, Have You Had Close Contact With A Laboratory-confi rmed COVID-19 While That Case Was Ill? No MIGRATION.14811 11788 Information not available 06/21/2022 In The 14 Days Before Symptom Onset, Have You Had Close Contact With A Person Who Is Under Investigation For COVID-19 While That Person Was Ill? No MIGRATION.04546 74294 Information not available 06/21/2022 Are You Deaf Or Do You Have Serious Difficulty Hearing? No MIGRATION.33083 43154 Information not available 06/21/2022 What Type Of Diet Are You Following? REGULAR MIGRATION.01570 72488 Information not available 06/21/2022 What Is The Highest Grade Or Level Of School You Have Completed Or The Highest Degree You Have Received? AF54642-1 MIGRATION.12888 47937 Information not available 06/21/2022 Have There Been Any Changes To Your Family Or Social Situation? No MIGRATION.65069 02472 Information not available 06/21/2022 What Is The Fluoride Status Of Your Home? Unknown MIGRATION.50933 23746 Information not available 06/21/2022 When Did You Quit Smoking? 16+yearssincelastci bereket gordo Information not available 08/29/2023 Are There Any Guns Present In Your Home? Yes MIGRATION.95698 47080 Information not available 06/21/2022 Do You Use Insect Repellent Routinely? No MIGRATION.50104 70402 Information not available 06/21/2022 Where Do You Live? [place] MIGRATION.72433 45468 Information not available 06/21/2022 Do You Have A Medical Power Of Transit Mechanic? No MIGRATION.44346 51512 Information not available 06/21/2022 What Was The Date Of Your Most Recent Tobacco Screening? 05/14/2024 [email or web address] Information not available 05/14/2024 Have You Ever Been Counseled For Unhealthy Alcohol Use? No Information not available 10/04/2023 Do You Have Any Pets? Yes MIGRATION.98817 [id number] Information not available 06/21/2022 What Is Your Relationship Status? MIGRATION.90200 99627 Information not available 06/21/2022 Do You Use Your Seat Belt Or Car Seat Routinely? Yes MIGRATION.14171 37027 Information not available 06/21/2022 Do You Have Smoke And Carbon Monoxide Detectors In Your Home? Yes MIGRATION.98040 24090 Information not available 06/21/2022 At What Age Did You Start Smoking Tobacco? 19 Information not available 08/29/2023 Are You Passively Exposed To Smoke? No MIGRATION.64729 15908 Information not available 06/21/2022 Are There Any Smokers In Your House? No MIGRATION.44921 58749 Information not available 06/21/2022 Do You Use Sunscreen Routinely? No MIGRATION.48029 32319 Information not available 06/21/2022 Has Tobacco Cessation Counseling Been Provided? No Information not available 10/04/2023 Have You Recently Traveled Abroad? No MIGRATION.93166 06161 Information not available 06/21/2022 Do You Have Difficulty Walking Or Climbing Stairs? No MIGRATION.06277 67502 Information not available 06/21/2022 Do You Have Any Dietary Restrictions? No MIGRATION.45663 21721 Information not available 06/21/2022 Sex: Unknown Functional Status Question Answer Note LastModified by Organizat Am[employer] Details LastModified Time Do you use any illicit or recreational drugs? No MIGRATION.[id number] 026 Information not available 06/21/2022 Do you or have you ever used any other forms of tobacco or nicotine? No MIGRATION.4849480 026 Information not available 06/21/2022 What is your level of alcohol consumption? Occasional MIGRATION.0423214 026 Information not available 06/21/2022 Are you currently employed? Yes Information not available 12/26/2023 Do you have transportation difficulties? No MIGRATION.[id number] 026 Information not available 06/21/2022 Are you able to walk? YESWOREST MIGRATION.9839959 026 Information not available 06/21/2022 Do you have difficulty doing errands alone? No MIGRATION.7779035 026 Information not available 06/21/2022 Are you able to care for yourself? Yes MIGRATION.2348443 026 Information not available 06/21/2022 What is your occupation? [employer] MIGRATION.6870503 026 Information not available 06/21/2022 Do you have difficulty dressing or bathing? No MIGRATION.2106245 026 Information not available 06/21/2022 What is your exercise level? None MIGRATION.2555992 026 Information not available 06/21/2022 Mental Status Question Answer Note LastModified by Organizat ion Details LastModified Time Do you feel stressed (tense, restless, nervous, or anxious, or unable to sleep at night)? LL2356-5 MIGRATION.[id number] 26 Information not available 06/21/2022 Do you have difficulty concentrating, remembering or making decisions? No MIGRATION.[id number] 26 Information not available 06/21/2022 Family History Relationship Description Onset Age of this Age Resolved Age Notes LastModified by Organization Details LastModified Time Father Diabetes mellitus [email or web address] Not available 2023 10:54:51 Mother Heart disease [email or web address] Not available 2023 10:55:20 Medical History Condition Response DIABETES, TYPE Y Immunizations Vaccine Type Date Status Note Provider Nam e and Address Organization Details Recorded Time tetanus toxoid, unspecified formulation completed Not Available [facility] 06/21/2022 14:16:35 COVID-19, mRNA, LNP-S, PF, 30 mcg/0.3 mL dose 1 completed Not Available [facility] 06/21/2022 14:16:35 COVID-19, mRNA, LNP-S, PF, 30 mcg/0.3 mL dose 1 completed Not Available [facility] 06/21/2022 14:16:35 Past Encounters Encounter ID Performer Location Encounter Start Date Encounter Closed Date Diagnosis/Indication Diagnosis SNOMED-CT Code Diagnosis ICD10 Code Diagnosis Note [id number] Jair Julio MD [facility] Internal Med [facility] [address] [facility] [place] [address] 10/21/2020 00:00:00 10/21/2020 14:53:38 [id number] Jair Julio MD [facility] Internal Med [place] [id number] [facility] [place] [address] 11/19/2020 00:00:00 11/19/2020 10:25:50 [id number] Jair Julio MD [facility] Internal Med [place] [id number] [facility] [place] [address] [id number]|2024-09-05 07:59:00|2024-09-05 07:59:00|XMS_ITS|BKG DAEMON|External Medical Summaries|[id number]|" CONTINUITY OF CARE DOCUMENT Created on: September 05, 2024 Waqar Cartwright : 1960 Sex: Male Author Name nancy cruz Address Unknown Organization [facility] Address [address] [place] [address] [place] [address] Phone [phone] Care Team Providers Care Cable Tower Operator Name Role Phone Goldie Pabon MD Unavailable [phone] DESTINEE MARTINEZ MD Unavailable DESTINEE MARTINEZ MD Unavailable [phone] PROBLEMS Condition Status Date Provider Notes Cardiology examination active Desmond Everett Diabetes mellitus, type 2 active Desmond Ahmed tiburcio Hyperlipidemia active Desmond Ahmedzai Abnormal EKG active Desmond Ahmedzai Hypertension--echo ef nl, 06/2024 active Ri az Ahmedzai Sleep apnea, moderate active Desmond Ahmedzai Former smoker active Desmond Carmenmedzai ENCOUNTERS Date Type Provider Location Encounter Diag nosis - In-person encounter Office Visit Goldie Pabon MD [facility] Hypertension--echo ef nl, 06/2024Sleep apnea, moderate - In-person encounter Office Visit Goldie Pabon MD [facility] Cardiology examinationDiabetes mellitus, type 2HyperlipidemiaAbnormal EKGHypertension--echo ef nl, leep apnea, moderateFormer smoker VITAL SIGNS Date Observation Value Provider Body Mass Index (Ratio) 28.40 kg/m2 Spencer Pabon MD blood pressure, diastolic 84 mm[Hg] Jyothi Macaky blood pressure, systolic 144 mm[Hg] Jackie Mackay pulse rate 70 /min Luna Oshea darcy oxygen saturation, oximetry 98 % Lunawil Osheas weight E&M 176 [lb_av] Willistonmarissa Oshea s blood pressure, cuff size regular Jyothi hiltonlevy Osheas height E&M 66 [in_i] Willistonwil Oshea darcy Body Mass Index (Ratio) 28.89 kg/m2 Spencer Pabon MD blood pressure, diastolic 83 mm[Hg] Archana Jauregui blood pressure, systolic 153 mm[Hg] Tammi Jauregui oxygen saturation, oximetry 96 % Hawa Jauregui pulse rate 83 /min Hawa Jauregui respiratory rate E&M 12 /min Hawa Jauregui weight E&M 179 [lb_av] Hawa Jauregui height E&M 66 [in_i] Hawa Jauregui blood pressure, cuff size regular Archana Jauregui ALLERGIES Allergy Name Onset Date Reaction Criticality Status PENICILLIN High Criticality active HISTORY OF MEDICATION USE Medication Status Instructions Dates Provider Indications Com ments losartan 50 mg tablet active Desmond Moralesmedzai atorvastatin 40 mg tablet active Desmond Ahmedzai Lipitor 40 mg tablet completed TAKE 1 TABLET BY MOUTH EVERY DAY - 3 Desmond Everett metformin (Glucophage XR) 500 mg tablet extended release 24 hr active TAKE 1 TABLET BY MOUTH ONCE DAILY IN THE MORNING Hawa Jauregui Singulair 10 mg tablet active 1 tablet by mouth once a day Hawa Jauregui Zetia 10 mg tablet active TAKE 1 TABLET BY MOUTH EVERY DAY AT NIGHT Hawa Jauregui SOCIAL HISTORY Date Observation Value Provider smoking status Former smoker Desmond Aranaza i smoking status Former smoker Desmond Carmenmedza i INSURANCE PROVIDERS Payer name Policy type / Coverage type [place] [employer] party ID [facility] Commercial insurance co [employer] [id number] ADVANCE DIRECTIVES Name Date DISCUSSED - NO DECISION MADE TREATMENT PLAN Date Name Performer Cardiology: H is updated medication list for this problem includes: Losartan 50 Mg Tablet (Losartan) Metformin (glucophage Xr) 500 Mg Tablet Extended Release 24 Hr (Metformin (glucophage xr)) ..... Take 1 tablet by mouth once daily in the morning Goldie Pabon MD Cardiology: H is updated medication list for this problem includes: Atorvastatin 40 Mg Tablet (Atorvastatin) Zetia 10 Mg Tablet (Ezetimibe) ..... Take 1 tablet by mouth every day at night Goldie Pabon MD Cardiology:.G BP today: 144/84 P rior BP: 153/83 (05/26/2024) His updated medication list for this problem includes: Losartan 50 Mg Tablet (Losartan) Goldie Pabon MD Cardiology New visit - moderate : O rders: S lee Study Home (CPT-26121) Goldie Pabon MD Cardiology New visit - moderate : H is updated medication list for this problem includes: Atorvastatin 40 Mg Tablet (Atorvastatin) Zetia 10 Mg Tablet (Ezetimibe) ..... Take 1 tablet by mouth every day at night Goldie Pabon MD Cardiology New visit - moderate : O rders: C omplete Echo (66851) C T, Coronary Calcium Score (CPT-32594) Goldie Pabon MD Cardiology New visit - moderate :This visit has been a part of the consistent, comprehensive, and ongoing management of the chronic medical condition(s) listed above for the patient. His updated medication list for this problem includes: Losartan 50 Mg Tablet (Losartan) Orders: C omplete Echo (05514) C T, Coronary Calcium Score (CPT-68432) Goldie Pabon MD Cardiology New visit - moderate : H is updated medication list for this problem includes: Losartan 50 Mg Tablet (Losartan) Metformin (glucophage Xr) 500 Mg Tablet Extended Release 24 Hr (Metformin (glucophage xr)) ..... Take 1 tablet by mouth once daily in the morning Goldie Pabon MD Date Name CT, Coronary Calcium Score Complete Echo Sleep Study Home HISTORY OF PROCEDURES Procedure Date Procedure Name Provider Procedure Notes S tatus Complex e/m visit add on Goldie Pabon MD completed Complex e/m visit add on Goldie Pabon MD completed EKG Goldie Pabon MD completed "
[2024-09-05 08:27] LABS: Alanine Aminotransferase 39 U/L (6-50); Albumin Level 4.5 g/dL (3.5-5.1); Alkaline Phosphatase 71 U/L (38-126); Anion Gap 8 mmol/L (4-12); Aspartate Amino Transferase 34 U/L (17-59); Bilirubin,Total 1.1 mg/dL (0.2-1.3); Blood Urea Nitrogen 14 mg/dL (9-20); Calcium 9.3 mg/dL (8.4-10.2); Carbon Dioxide 26 mmol/L (22-30); Chloride 103 mmol/L (98-107); Cholesterol 99 mg/dL (0-200); Estimated Glomerular Filt Rate > 60; Glucose 130 mg/dL (65-110); HDL Direct 35 mg/dL; Potassium 4.4 mmol/L (3.4-5.0); Sodium 137 mmol/L (137-145); Triglycerides 147 mg/dL (<150)
[2024-09-05 08:38] LABS: LDL Cholesterol Direct 36 mg/dL
[2024-09-05 08:40] LABS: Basophils Absolute Auto 0.1 K/mm3 (0.0-0.1); Basophils Percent Auto 0.9 % (0.2-1.2); Eosinophils Absolute Auto 0.3 K/mm3 (0-0.3); Eosinophils Percent Auto 3.1 % (0-4.4); Hematocrit 47.1 % (42.0-52.0); Hemoglobin 15.3 g/dL (14.0-18.0); Immature Granulocyte Absolute 0.03 K/mm3 (0.00-0.031); Immature Granulocyte Percent A 0.3 % (0-0.5); Lymphocytes Absolute Auto 1.46 K/mm3 (0.9-3.2); Lymphocytes Percent Auto 15.2 % (18.3-44.2); Mean Corpuscular HGB Conc 32.5 g/dl (32-36); Mean Corpuscular Hemoglobin 29.5 pg (26-34); Mean Corpuscular Volume 90.9 fl (80-100); Mean Platelet Volume 9.7 fl (7.4-10.4); Monocytes Absolute Auto 0.7 K/mm3 (0.1-0.6); Monocytes Percent Auto 7.6 % (2.6-8.5); Neutrophils Percent Auto 72.9 % (45.5-73.1); Platelet Count Result 211 k/mm3 (150-375); Red Blood Count 5.18 M/mm3 (4.6-6.20); White Blood Count 9.6 K/mm3 (4.5-10.0)
[2024-09-05 08:42] LABS: Creatinine Urine 246.1 mg/dL
[2024-09-05 08:47] LABS: Microalbumin Urine Random 22.1 mg/L (0-16.7)
[2024-09-05 08:57] LABS: Hepatitis B Surface Antigen Negative (Negative)
[2024-09-05 09:03] LABS: HAV RESULT Negative (Negative); Hepatitis B Core IgM Result Negative (Negative)
[2024-09-05 09:14] LABS: Hepatitis C Virus Antibody Negative (Negative)
[2024-09-05 09:26] LABS: Hemoglobin A1C 6.1 % (<5.7)
== END 2024-09-05 07:56 | disposition home or self-care (01) ==
LOC: ANHLAB 07:56
PROVIDERS: PCP Internal Medicine; Visit Provider Internal Medicine
DX: E78.5 Hyperlipidemia, unspecified (principal); E11.9 Type 2 diabetes mellitus without complications; E80.6 Other disorders of bilirubin metabolism
CPT/HCPCS: 36415; 80053; 80061; 80074; 82043; 83036; 84443; 85025

== ENCOUNTER 2025-01-29 13:37 | Outpatient (CLI) | payer OTHER, SELFPAY ==
--- NOTE | ~2025-01-29 | US_ITS ---
EXAMINATION: US retroperitoneal comp DATE: 01/29/2025 13:51 INDICATION: Chronic kidney disease stage III. TECHNIQUE: Multiple ultrasound grayscale images of the kidneys were obtained. COMPARISON: Ultrasound 01/05/2024 FINDINGS: The right kidney measures 11.4 x 4.6 x 6.0 cm. The left kidney measures 11.2 x 4.5 x 4.7 cm. The kidneys demonstrate normal parenchymal echogenicity. There is no hydronephrosis. The bladder is normal. IMPRESSION: 1. Normal kidneys. No hydronephrosis. Reviewed, dictated and finalized at location E.
== END 2025-01-29 13:38 | disposition home or self-care (01) ==
LOC: MICIMG 13:38
PROVIDERS: PCP Internal Medicine; Visit Provider Specialist
DX: N18.30 Chronic kidney disease, stage 3 unspecified (principal)
CPT/HCPCS: 76770

== ENCOUNTER 2025-02-03 07:53 | Outpatient (CLI) | payer OTHER, SELFPAY ==
--- OUTSIDE RECORDS SUMMARY | 2024-12-26 09:45 | XMS_ITS ---
Author Organization [facility] Address [address] [address] [place] [address] Care Team Providers Care Body Make Up Artist Name Role Phone PabonJoviJorje Unavailable [phone] Problems Problem Type SNOMED Code ICD Code Onset Dates Problem Status W/U Status Risk Notes Problem Chronic kidney disease stage 2 (528120235) Chronic kidney disease, stage 2 (mild) (N18.2) Active confirmed Problem Proteinuria (11659635) Proteinuria, unspecified (R80.9) Active confirmed Problem Hyperlipidemia (52066375) Hyperlipidemia, unspecified (E78.5) Active confirmed Problem Obesity (223183584) Obesity, unspecified (E66.9) Active confirmed Problem Sleep apnea (18042696) Sleep apnea, unspecified (G47.30) Active confirmed Problem Erectile dysfunction (disorder) (733246973) Male erectile dysfunction, unspecified (N52.9) Active confirmed Encounters Encounter Location Date Provider Diagnosis [facility] [address] [place] [address] [address] [place] [address] 12/26/2024 Jorje Pabon Chronic kidney disease, stage 2 (mild) N18.2 ; Proteinuria, unspecified R80.9 ; Hyperlipidemia, unspecified E78.5 ; Obesity, unspecified E66.9 ; Sleep apnea, unspecified G47.30 and Male erectile dysfunction, unspecified N52.9 Assessments Encounter Date Diagnosis (ICD Code) Assessment Notes Treatment Notes Treatment Clinical Notes Section Notes 12/26/2024 Chronic kidney disease, stage 2 (mild) (ICD-10 - N18.2) 12/26/2024 Proteinuria, unspecified (ICD-10 - R80.9) 12/26/2024 Hyperlipidemia, unspecified (ICD-10 - E78.5) 12/26/2024 Obesity, unspecified (ICD-10 - E66.9) 12/26/2024 Sleep apnea, unspecified (ICD-10 - G47.30) 12/26/2024 Male erectile dysfunction, unspecified (ICD-10 - N52.9) Plan Of Treatment Next Appt Details Provider Name:Jorje Pabon , 02/06/2025 02:00:00 PM, [address], [facility] [address], [place], [address], Progress Notes * Waqar CARTWRIGHTDOB: (64 yo M)Acc No.[id number]:12/26/2024 Progress Notes Patient: Waqar KAY Provider: Reed RUVALCABA MD, F.A.C.P, F.A.S.N. :1960 A ge:64 Y S ex:Male Date:12/26/2024 Address:[address] [place], [place] [id number] Subjective: * Chief Complaints: * * Medical History: Objective: * Vitals: Assessment: * Assessment: 1. C hronic kidney disease, stage 2 (mild) - N18.2 (Primary) 2 . P roteinuria, unspecified - R80.9 3 . H yperlipidemia, unspecified - E78.5 ?4. O besity, unspecified - E66.9 5 . S leep apnea, unspecified - G47.30 6. M kingsley erectile dysfunction, unspecified - N52.9 Plan: * Treatment: * Billing Information: * Visit Code: 14169 Office Visit, New Pt., Level 5. * Procedure Codes: * Electronic signature of Jai Pabon MD on 02/03/2025 at 08:03 AM CDT Sign off status: Pending * Provider: Reed RUVALCABA MD, F.A.C.P, F.A.S.N. Date: 0 12/26/2024 Generated for Printing/Faxing/eTransmitting on: 08:03 AM CDT
--- OUTSIDE RECORDS SUMMARY | 2025-01-23 12:30 | XMS_ITS ---
Author Organization [facility] Address [address] [facility] [address] [facility] [address] [place] [address] Care Team Providers Care Oracle Database Administrator Name Role Phone Cm Jorje Unavailable [phone] Encounters Encounter Location Date Provider Diagnosis [facility] [address] [facility] [address] [place] [address] 01/23/2025 Jorje Pabon Plan Of Treatment Next Appt Details Provider Name:Jorje Cm , 02/06/2025 02:00:00 PM, [address] [facility], [facility] [address], [place], [address], Progress Notes * Waqar SHELTONDOB: (64 yo M)Acc No.[id number]:01/23/2025 Progress Notes Patient: Waqar KAY Provider: Reed RUVALCABA MD, Priyanka.Alexis.C.P, F.A.S.N. :1960 A ge:64 Y S ex:Male Date:01/23/2025 Address:[address] [place] [address] Subjective: * Chief Complaints: Objective: Assessment: Plan: * Billing Information: * Visit Code: * Procedure Codes: * Electronic signature of Jai Pabon MD on 02/03/2025 at 08:03 AM CDT Sign off status: Pending * Provider: Reed RUVALCABA MD, Priyanka.Alexis.C.P, F.A.S.N. Date: Generated for Printing/Faxing/eTransmitting on: 08:03 AM CDT
--- OUTSIDE RECORDS SUMMARY | 2025-02-03 08:03 | XMS_ITS | Patient Health Record ---
Author Organization [facility] Address [address] [place] [address] Care Team Providers Care Smoke Jumper Supervisor Name Role Phone Jovi Pabonerjit Unavailable [phone] Reason For Referral No Information Problems Problem Type SNOMED Code ICD Code Onset Dates Problem Status W/U Status Risk Notes Problem Obesity (855800511) Obesity, unspecified (E66.9) Active confirmed Problem Hyperlipidemia (43196493) Hyperlipidemia, unspecified (E78.5) Active confirmed Problem Sleep apnea (12341339) Sleep apnea, unspecified (G47.30) Active confirmed Problem Chronic kidney disease stage 2 (394837766) Chronic kidney disease, stage 2 (mild) (N18.2) Active confirmed Problem Erectile dysfunction (disorder) (136575618) Male erectile dysfunction, unspecified (N52.9) Active confirmed Problem Proteinuria (57510765) Proteinuria, unspecified (R80.9) Active confirmed Encounters Encounter Location Date Provider Diagnosis [facility] [address] [place] [address] 12/26/2024 Jorje Pabon Chronic kidney disease, stage [...] Name:Jorje Pabon , 02/06/2025 02:00:00 PM, [address], [facility] [address], [place], [address],
[2025-02-26 11:58] VITALS: BMI 26.1
--- NOTE | 2025-02-26 11:58 | P.SLEEP_ITS ---
Sleep Study - Home Unattended Date of Study: 02/03/25 Ordering Provider: Linda,Connie Tadeo NP-C Interpreting Provider: Brandi Marc DO Home Sleep Study Type: Watch PAT Height: 1.68 m Weight: 73.482 kg Body Mass Index: 26.1 Neck Circumference (inches): 15.5 [place]: 0 Reason for Sleep Study Trouble falling asleep Sleep History The patient is a 64-year-old male that had a sleep study ordered by his director financial planning for evaluation of sleep apnea. The patient admits to having trouble falling asleep. He denies snoring loudly. He denies having interruptions in breathing while asleep. He denies choking or gasping at night. He denies having trouble breathing on his back. He denies morning headaches. He does have a dry or sore mouth / throat in the morning. He denies nocturnal heartburn. He denies nocturia. He does have difficulty staying asleep. He does have difficulty returning to sleep if he wakes up throughout the night. He denies any hypnotic or sedative use. He denies feeling anxious about sleep. He denies feeling tired or sleepy during the day. He denies feeling tired in the morning. He denies having the urge to fall asleep during the day. He denies feeling drowsy while driving. He denies sleep paralysis, cataplexy and hypnagogic/ hypnopompic hallucinations. He denies kicking or jerking his legs excessively. He denies having a restless feeling in his legs. He goes to bed at 9:30 a.m. on work days and at 11:00 p.m. on his days. He gets 4 hours of sleep on his work days. His sleep is not restorative on his days. He denies taking any planned naps. He denies dream enactment behavior. He denies sleep walking. He consumes 1-2 cups of caffeinated beverage per day. He does consume alcoholic beverages. He denies tobacco use. He does exercise on regular basis. FOR[facility]LY [facility], [facility] Past Medical History Medical History Colon cancer screening Overweight Hyperlipidemia Seasonal allergies Vision abnormalities Surgical History Surgical History History of foot surgery H/O sinus surgery H/O hernia repair Social History Social History Smoking packs per day: 1 Smoking cigarettes per day: 20.0 Years smoked: 5 Smoking pack-years: 5.00 Smoking status: Former smoker Tobacco type: cigarettes Smoking end date: 04/23/00 Additional smoking assessment comments: pt stated he quit 23 years ago Alcohol intake: current Drinks per week: 2 Alcohol use details: once a week Substance use: never Substance use type: does not use Do You Feel Safe in your Home?: Yes Lack of Transportation: No Lack of Food: Never True Current Housing: I Have Housing Living arrangements: with family Gender identity (if verbalized by the patient): Male Sexual Orientation (if Verbalized by the Patient): Straight or Heterosexual Spiritual care concerns: No Medications Home Medications ?Medication ?Instructions ?Recorded ?Confirmed ?Type ezetimibe 10 mg tablet (Zetia) 10 mg PO DAILY 09/14/23 02/29/24 History losartan 50 mg tablet (Cozaar) 50 mg PO DAILY 09/14/23 02/29/24 History metformin 500 mg tablet 500 mg PO DAILY 09/14/2312/14 History montelukast 10 mg tablet 10 mg PO DAILY 09/14/2312/14 History (Singulair) Sleep Procedure The sleep study was completed using Next CallerPAT a technically adequate device with seven channels: peripheral arterial tone, actigraphy, body position, snore, respiratory movement, pulse oximetry, sleep staging, and heart rate. Prior to using the device, the patient received verbal and written instructions for its application and was provided with the help desk phone number for additional tel ephonic instruction with 24-hour availability of qualified personnel to answer questions. The study was scored using CMS guidelines. Sleep Architecture The total recording time is 7 hrs, 52 min. The total sleep time is 7 hrs, 10 min. Sleep latency is 17 minutes. REM latency is 69 minutes. The patient had 4 episodes of waking. Sleep architecture shows 14.7% deep sleep, 55.2% light sleep, and (as % Total Sleep Time) showed NREM (Light 55.2%; Deep 14.7%), and a 30.1% stage REM. The patient spent 27.4% of total sleep time in the supine position. Sleep efficiency was 91.10. Respiratory Analysis The overall AHI (pAHI 4%:) is 1.7. The overall AHI (pAHI 3%:) is 2.5. The central AHI is 0.0. The AHI was 1.4 in NREM and 5.1 in REM sleep. The AHI was 7.2 in Supine and 0.8 in Non-supine sleep. Percent of Fred Eason respirations is 0.0. Oximetry Data The oxygen desaturation index (KANG 4%:) is 0.7. The mean saturation is 95%, and the lowest saturation is 89%. Time spent with saturation < 88% is 0.0 minutes. Snoring Profile Snoring average intensity is 41 dB. The patient snored above 45 decibels for 3.8 minutes, 0.9% of sleep time. Cardiac Profile The average pulse rate is 61 beats per minutes. The lowest pulse rate is 50 bpm. The highest pulse rate reported is 94 bpm. Atrial fibrillation was not detected. Premature beats occur <0.1 per minute. Assessment and Plan Assessment and Plan (1) Sleep disturbances: Code(s): G47.9 - Sleep disorder, unspecified Status: Acute Assessment and Plan: The patient had an overall AHI of 1.7 with desaturation down to 89%. This is not consistent with sleep-disordered breathing. If there is further concern for a sleep disorder, I recommend that the patient have a split study with the use of a hypnotic to ensure we obtain enough sleep data. Data The data obtained during this sleep study is adequate for interpretation. Certification This sleep study has been reviewed by a board certified sleep medicine physician.
== END 2025-02-04 11:50 | disposition home or self-care (01) ==
PROVIDERS: PCP Internal Medicine; Visit Provider Nurse Practitioner
DX: G47.9 Sleep disorder, unspecified (principal); I10 Essential (primary) hypertension
CPT/HCPCS: 95800